=== PATIENT | female | born 1950 | race African-American/Black ===

== ENCOUNTER → 2018-01-10 | Outpatient (CLI) | payer BC, MEDICARE | END | disposition home or self-care (01) | LOC: MAMMO 08:07 | DX: Z12.31 Encounter for screening mammogram for malignant neoplasm of breast (principal) | CPT/HCPCS: 77063; 77067 ==

== ENCOUNTER → 2018-01-21 | Outpatient (CLI) | payer BC, MEDICARE | END | disposition home or self-care (01) | LOC: MAMMO 09:23 | DX: N63.10 Unspecified lump in the right breast, unspecified quadrant (principal) | CPT/HCPCS: 76641; 77065 ==

== ENCOUNTER → 2018-07-18 | Outpatient (CLI) | payer BC, MEDICARE ==
[2016-01-01 17:39] VITALS: BP 151/71
--- NOTE | 2018-07-18 14:32 | RAD ---
Right breast ultrasound, 07/18/2018: History: Follow-up nodule Comparison is made to a study from 01/21/2018. The area of concern identified on the previous study at the 6:00 retroareolar level was targeted. Again noted is an elongated hypoechoic nodule measuring 6 x 6 x 3 mm. It is of similar size and configuration compared to the previous study. Its margins are smooth and it is wider than tall. It has a benign appearance. IMPRESSION: Stable small right breast nodule. Sonographic follow-up in 6 months at the time of the patient's bilateral mammography is suggested. BI-RADS 3-probably benign findings
== END | disposition home or self-care (01) ==
LOC: US 13:37
PROVIDERS: ATTEND Internal Medicine
DX: R92.8 Other abnormal and inconclusive findings on diagnostic imaging of breast (principal)
CPT/HCPCS: 76641

== ENCOUNTER → 2020-08-09 | Outpatient (CLI) | payer BC ==
[2016-01-01 17:39] VITALS: BP 151/71
--- NOTE | 2020-08-10 09:16 | RAD ---
DATE: 08/09/2020 8:41 AM EXAM: MAMMO MARQUEZ SCREENING BILATERAL HISTORY: Screening COMPARISON: 01/10/2018 Bilateral CC and MLO views of the breasts were performed. Bilateral breast tomosynthesis was performed in CC and MLO projections. This study was interpreted with the benefit of Computerized Aided Detection (CAD). FINDINGS: Breast Density: SCATTERED The breast parenchyma shows scattered fibroglandular densities. Breast parenchyma level B No suspicious masses, microcalcifications or architectural distortion is present to suggest malignancy in either breast. The visualized axillae are unremarkable. IMPRESSION: No mammographic evidence of malignancy. BI-RADS CATEGORY: 1 NEGATIVE RECOMMENDED FOLLOW-UP: 12M 12 MONTH FOLLOW-UP Annual screening mammography is recommended, unless clinically indicated sooner based on symptoms or change in physical exam. PQRS compliance statement: Patient information was entered into a reminder system with a target due date for the next mammogram. Mammography is a sensitive method for finding small breast cancers, but it does not detect them all and is not a substitute for careful clinical examination. A negative mammogram does not negate a clinically suspicious finding and should not result in delay in biopsying a clinically suspicious abnormality. "Our facility is accredited by the [employer] Mammography Program."
== END | disposition home or self-care (01) ==
LOC: MAMMO 08:31
PROVIDERS: ATTEND Internal Medicine
DX: Z12.31 Encounter for screening mammogram for malignant neoplasm of breast (principal)
CPT/HCPCS: 77063; 77067

== ENCOUNTER → 2021-08-15 | Outpatient (CLI) | payer BC ==
[2016-01-01 17:39] VITALS: BP 151/71
--- NOTE | 2021-08-15 14:58 | RAD ---
MG BILAT SCREEN+MARQUEZ 08/15/2021 10:30 AM INDICATION: Asymptomatic screening mammogram. COMPARISON: 08/09/2020, 01/10/2018 TECHNIQUE: 3D tomosynthesis was performed in CC and MLO projections. 2D views were obtained from the 3D data. CAD was utilized as needed. FINDINGS: Breast density: Category B: There are scattered areas of fibroglandular density. Right breast: There are no suspicious microcalcifications, masses or areas of architectural distortio n. Left breast: There is a new mass in the upper left breast measuring 0.9 cm, approximately 4.2 cm from the nipple, along the posterior nipple line on the left CC view. Further evaluation with targeted ul trasound is recommended. IMPRESSION: 1. Incomplete left mammogram. Additional imaging is recommended. 2. Negative right mammogram. BI-RADS category: 0; Incomplete Recommendations: Recommend additional imaging for which the patient will need to be called back. Electronically signed by: Isabel Champion MD (08/15/2021 2:56 PM) [email or web address]
== END ==
LOC: MAMMO 10:25
PROVIDERS: ATTEND Internal Medicine
DX: Z12.31 Encounter for screening mammogram for malignant neoplasm of breast (principal)
CPT/HCPCS: 77063; 77067

== ENCOUNTER → 2021-08-16 | Outpatient (CLI) | payer BC ==
[2016-01-01 17:39] VITALS: BP 151/71
--- NOTE | 2021-08-16 14:38 | RAD ---
US BREAST LT 08/16/2021 12:54 PM INDICATION: Left breast mass COMPARISON: Mammogram 08/15/2021 TECHNIQUE: Targeted sonographic evaluation of the left breast and left axilla was performed. FINDINGS: At the 12:00 position, 6 cm from the nipple there is a 0.7 x 0.6 x 0.9 cm irregular, hypoechoic mass with posterior acoustic shadowing suspicious for primary breast malignancy. Further evaluation with u ltrasound-guided core needle biopsy is recommended. At the 12:30 position, 6 cm from the nipple, there are 2 adjacent hypoechoic circumscribed masses wit h through transmission suggestive of cysts. At the 12:00 position, 4 cm from the nipple there is a hypoechoic mass which appears irregular withou t definite posterior acoustic characteristics. There may be a septation centrally. This mass measures approximately 0.5 x 1.1 x 0.9 cm. This mass is suspicious and warrant ultrasound-guided core needle biopsy. In the left axilla there are at least 3 hypoechoic reniform lymph nodes with increased cortical thick ness suspicious for chadd disease. Cortical thickness measures up to 11 mm. Ultrasound-guided core ne edle biopsy of left axillary lymph node is recommended. Findings were discussed with the patient at the time of image acquisition. Results were discussed wit parul Esparza, at 2:30 PM on 08/16/2021. An order for ultrasound-guided core needle biopsy of the left breast will be provided to the patient. IMPRESSION: Suspicious findings of the left breast which warrant ultrasound-guided core needle biopsy of at least 2 sites within the left breast and left axillary lymph node. BI-RADS category: 4; Suspicious Recommendations: Tissue sampling is recommended as detailed above. Electronically signed by: Isabel Champion MD (08/16/2021 2:36 PM) [email or web address]
== END ==
LOC: US 12:48
PROVIDERS: ATTEND Internal Medicine
DX: N63.42 Unspecified lump in left breast, subareolar (principal); R92.8 Other abnormal and inconclusive findings on diagnostic imaging of breast
CPT/HCPCS: 76641

== ENCOUNTER → 2021-09-04 | Outpatient (CLI) | payer BC, MEDICARE ==
[2016-01-01 17:39] VITALS: BP 151/71
--- NOTE | 2021-09-04 12:59 | RAD ---
EXAM: 1. ULTRASOUND-GUIDED CORE BIOPSY OF 2 LEFT BREAST MASSES WITH CLIP PLACEMENT. 2. ULTRASOUND-GUIDED CORE BIOPSY OF ENLARGED LEFT AXILLARY LYMPH NODES. 3. POSTCLIP DIAGNOSTIC LEFT MAMMOGRAPHY. HISTORY: Left breast mass. Ultrasound-guided biopsy is requested. FINDINGS: The procedure along with its risks and benefits were explained to the patient. She agreed to proceed. A timeout procedure was performed. Sonographic evaluation of the left breast redemonstrates the lesions of concern. These are seen as a hypoechoic masses at the left 12:00 position 6 cm from the nipple and 4 cm from the nipple. The overl mary anne skin was sterilely prepped and infiltrated with 1% lidocaine for local anesthesia. The lesion 6 cm from the nipple was initially targeted. Under ultrasound guidance, 2 core needle specimens of the target lesion were obtained using a 14-gauge biopsy device. These were submitted in formalin. A postb iopsy clip was placed under ultrasound guidance. The procedure was repeated at the lesion 4 cm from the nipple. The same skin site. 3 core needle spec imens were obtained with a 14-gauge biopsy device. These were submitted in formalin. A postbiopsy cli p was placed under ultrasound guidance. The largest left axillary lymph node was visualized sonographically. The overlying skin was sterilely prepped and infiltrated with 1% lidocaine for local anesthesia. 3 18-gauge core needle specimens wer e obtained. A postbiopsy clip was placed under ultrasound guidance. Pressure was held to hemostasis. There were no immediate complications. Full-field digital mammographic views of the left breast were obtained in CC and MLO projections and interpreted on a dedicated workstation. They demonstrate the postbiopsy clips in correspondence with the target lesions. An old postbiopsy clip is noted medially. IMPRESSION: 1. Successful ultrasound-guided biopsy of 2 left breast masses at the 12:00 position 6 cm from the ni pple and 4 cm from the nipple with clip placement. 2. Successful ultrasound-guided biopsy of the largest left axillary lymph node with clip placement. 3.The postbiopsy clips correspond with the target lesions. Electronically signed by: Mary Miller MD (09/04/2021 12:57 PM) [id number]
--- NOTE | 2021-09-06 09:15 | PATHOLOGY ---
[facility] Accession Number: [id number] . 01 Material submitted: . PART A: breast - LEFT BREAST MASS 12:00 6 CMFN. Modifiers: left PART B: breast - LEFT BREAST MASS 12:00 4CMFN. Modifiers: left PART C: axillary tail of breast - LEFT AXILLARY LYMPH NODE . Modifiers: left . 02 Diagnosis: A. Breast tissue, left breast mass 12:00 6 cm from nipple needle biopsies: - INVASIVE DUCTAL CARCINOMA, HISTOLOGIC GRADE 3. . B. Breast tissue, left breast mass 12:00 4 cm from nipple needle biopsies: - INVASIVE DUCTAL CARCINOMA, HISTOLOGIC GRADE 3. . C. Lymph node, left axillary lymph node needle biopsies: - METASTATIC CARCINOMA. . (JPM:martin; 09/05/2021) MBR 09/05/2021 1206 Local . 02 Comment: Sections of the left breast mass biopsies at 12:00 6 cm from nipple and 4 cm from nipple appear similar and reveal an invasive mammary carcinoma. The tumor cells are present in nests and cords and show little tubule formation. The tumor is associated with a reactive and chronically inflamed stroma. The tumor cells show marked nuclear pleomorphism. Mitotic figures are readily demonstrated. The invasive carcinoma 6 cm from nipple measures approximately 7 mm in greatest dimension on the glass slide. The invasive carcinoma 4 cm from nipple measures approximately 1.0 cm in greatest dimension on the glass slide. There is no lymphovascular tumor invasion. There are no tumor associated calcifications. The morphologic findings are supportive of the diagnosis of invasive ductal carcinoma, histologic grade 3. Sections of the axillary node biopsy show metastatic carcinoma morphologically consistent with breast origin. Breast prognostic studies will be obtained on B2, the results of which will be reported separately. The case is also examined by Dr. Real, who concurs with the diagnoses. (JPM:traveling buyer; 09/05/2021) . 02 Electronically signed: . Sharif Sesay MD, Pathologist NPI- [id number] . 01 Gross description: . A. The specimen is received in formalin, labeled "Clint Mortensen, LT breast 12:00 6 cmFN" and consists of 2 fibrofatty cylindrical tissues (ranging in length from 1.5 cm to 1.7 cm and each averaging 0.2 cm in diameter). The specimen is submitted in toto in A1-A2. The cold ischemic time is 2 minutes. The total time in formalin is 10 hours. . B. The specimen is received in formalin, labeled "Mortensen, Verdis, Lt breast 1200 4 cmFN" and consists of 3 fibrofatty cylindrical tissues ranging in length from 1.5 cm to 1.8 cm and each averaging 0.2 cm in diameter. The specimen is submitted in toto in B1-B3. The cold ischemic time is 60 seconds. The total time in formalin is 10 hours. . C. The specimen is received in formalin, labeled "Mortensen, Verdis, LT axillary node" and consists of multiple silverman-amezcua, fragmented cylindrical tissues (ranging in length from 0.4 cm to 1.2 cm and each averaging 0.1 cm in diameter). The specimen is submitted entirely in C1-C3. (YOMBA SHOSHONE; 09/04/2021) DKA/DKA 09/05/2021 1200 Local . 02 Pathologist provided ICD-10: C50.912, C77.3 . 02 CPT . 761970, 911461, 226682 Specimen Comment: A courtesy copy of this report has been sent to [phone], [phone] Specimen Comment: [id number] Specimen Comment: Report sent to / DR FULLER Specimen Comment: A duplicate report has been generated due to demographic updates. Performed at: [facility] [address] [facility] [address], [place] [id number] MD Guilherme Hill MD Phone: [phone] [facility]formed at: [facility] [address] [place], [place] [id number] MD Sharif Sesay MD Phone: [phone]
== END | disposition home or self-care (01) ==
LOC: US 10:45
PROVIDERS: ATTEND Internal Medicine
DX: R92.8 Other abnormal and inconclusive findings on diagnostic imaging of breast (principal); C50.912 Malignant neoplasm of unspecified site of left female breast; C77.3 Secondary and unspecified malignant neoplasm of axilla and upper limb lymph nodes; R59.0 Localized enlarged lymph nodes
CPT/HCPCS: 19083; 19084; 38505; 77065; 88305; A4648; C1819